=== PATIENT | male | born 1960 | race Hispanic/Latino ===

== ENCOUNTER 2018-10-24 11:12 | Observation (INO) | payer OTHER ==
[2018-10-24] MEDS ORDERED: ASPIRIN 81 MG CHEWABLE TABLET ONE (11:42)
[2018-10-24] MEDS ORDERED: METOPROLOL TAR 50 MG TAB ONE ×2 (11:42→11:43)
--- NOTE | 2018-10-24 11:48 | ER ---
Nurse's Notes [facility] Name: Nicholas Gallegos Jr Age: 58 yrs Sex: Male : 1960 Arrival Date: 10/24/2018 Time: 11:16 Bed 2 Private MD: Diagnosis: Chest pain, unspecified Presentation: 10/24 11:16 Presenting complaint: Patient states: "over the last few days I've been waking up with aa5 my whole face numb and it keeps lasting longer everyday". Pt also reports chest pain, palpitations, and intermittent SOB. 11:16 Transition of care: patient was not received from another setting of care. Onset of aa5 symptoms was September 2018. Risk Assessment: Do you want to hurt yourself or someone else? Patient reports no desire to harm self or others. Care prior to arrival: None. 11:16 Method Of Arrival: Wheelchair aa5 11:16 Acuity: ANA 2 aa5 Historical: - Allergies: 11:17 No Known Allergies; aa5 - PMHx: 11:17 Hyperlipidemia; Hypertension; aa5 - PSHx: 11:17 None; aa5 - Immunization history:: Flu vaccine is not up to date. - Social history:: Smoking status: Patient/guardian denies using tobacco. - Ebola Screening: : No symptoms or risks identified at this time. - Family history:: not pertinent. Screenin:19 Abuse screen: Denies threats or abuse. Denies injuries from another. Nutritional sv screening: No deficits noted. Tuberculosis screening: No symptoms or risk factors identified. Fall Risk None identified. Assessment: 11:25 General: Appears in no apparent distress. comfortable, Behavior is calm, cooperative, ss Denies fever, feeling ill, fatigue, chills. Pain: Complains of pain in chest Pain does not radiate. Pain currently is 5 out of 10 on a pain scale. Quality of pain is described as pressure, Pain began "a few days ago. It happens when my blood pressure goes up." Is episodic. Neuro: Level of Consciousness is awake, alert, obeys commands, Oriented to person, place, time, situation, Speech is normal. Neuro: Reports numbness to entire face that began "a few days ago" Mostly occurs in the morning. Denies numbness on arrival to ER. . Cardiovascular: Capillary refill < 3 seconds is brisk in bilateral fingers Patient's skin is warm and dry. Respiratory: Airway is patent Respiratory effort is even, unlabored, Respiratory pattern is regular, symmetrical. GI: No signs and/or symptoms were reported involving the gastrointestinal system. Patient currently denies diarrhea, nausea, vomiting. : No signs and/or symptoms were reported regarding the genitourinary system. EENT: Nares are clear Oral mucosa is moist. Throat is clear. Derm: Skin is intact, is healthy with good turgor, Skin is dry, Skin is pink, warm \\T\\ dry. normal. 12:38 Reassessment: Patient appears in no apparent distress at this time. Patient and/or ss family updated on plan of care and expected duration. Pain level reassessed. Patient is alert, oriented x 3, equal unlabored respirations, skin warm/dry/pink. Patient denies pain at this time. Neuro: Denies numbness. 14:29 Reassessment: No changes from previously documented assessment. Patient and/or family ss updated on plan of care and expected duration. Pain level reassessed. Patient is alert, oriented x 3, equal unlabored respirations, skin warm/dry/pink. Pt to MRI at this time Patient denies pain at this time. Vital Signs: 11:17 BP 172 / 71; Pulse 75; Resp 18 S; Pulse Ox 100% on R/A; Weight 90.72 kg (R); Height 5 aa5 ft. 6 in. (167.64 cm) (R); Pain 3/10; 11:20 Temp 98.2(O); aa5 12:23 BP 126 / 91; Pulse 62; Resp 16; Pulse Ox 99% ; sv 15:41 BP 118 / 82; Pulse 63; Resp 16; Temp 98.2(TE); Pulse Ox 100% on R/A; Pain 0/10; ss 16:07 BP 125 / 78; Pulse 63; Resp 16; Pulse Ox 100% ; sv 11:17 Body Mass Index 32.28 (90.72 kg, 167.64 cm) aa5 ED Course: 11:16 Patient arrived in ED. rg4 11:16 Arm band placed on Patient placed in an exam room, on a stretcher. aa5 11:17 Kelvin Tinoco MD is Attending Physician. [facility] 11:19 Patient has correct armband on for positive identification. Placed in gown. Bed in low sv position. engine monitor on. Pulse ox on. NIBP on. 11:20 Triage completed. aa5 11:20 Inserted saline lock: 20 gauge in right antecubital area, using aseptic technique. ss Blood collected. Patient maintains SpO2 saturation greater than 95% on room air. 11:22 ED physician to see patient. sv 11:25 EKG done, by floor tech. reviewed by Kelvin Tinoco MD. at1 11:27 Grazyna Kee, CINTIA is Primary Nurse. ss 11:43 X-ray(s) taken. sv 11:46 Rosio Márquez MD is Hospitalizing Provider. deisy 11:58 CT Head Brain wo Cont In Process Unspecified. EDMS 12:01 X-ray completed. Portable x-ray completed in exam room. Patient tolerated procedure jb2 well. 12:03 XRAY Chest (1 view) In Process Unspecified. EDMS 12:09 US Carotid Artery Bilateral In Process Unspecified. EDMS 14:23 Patient moved to MRI via wheelchair. ka 16:08 No provider procedures requiring assistance completed. Patient admitted, IV remains in sv place. intact. Administered Medications: 11:36 Drug: Aspirin Chewable Tablet 324 mg Route: PO; ss 12:50 Follow up: Response: No adverse reaction ss 11:37 Not Given (Duplicate Order): Lopressor (metoprolol TARTRATE) 50 mg PO once deisy 11:42 Drug: Lopressor 25 mg Route: PO; ss 12:51 Follow up: Response: No adverse reaction; Pain is decreased ss Outcome: 11:47 Decision to Hospitalize by Provider. deisy 16:08 Admitted to Tele accompanied by tech, via wheelchair, room 217, with chart, Report sv called to Ovi CHAMBERLAIN 16:08 Condition: stable 16:08 Instructed on the need for admit. 16:15 Patient left the ED. sv Signatures: Dispatcher [employer] EDMS Candie Ross, RN RN Kelvin Block MD MD cha Buechter, Jesse jb2 Alisha Rene, CINTIA RN aa5 Grazyna Kee, CINTIA RN ss Hodan Healy, comptometrist EKG Tat1 Joy Hansen Rubi rg4
--- NOTE | 2018-10-24 11:49 | EDPHYS ---
Physician Documentation [facility] Name: Nicholas Gallegos Jr Age: 58 yrs Sex: Male : 1960 Arrival Date: 10/24/2018 Time: 11:16 Bed 2 Private MD: WADE Physician Kelvin Tinoco HPI: 10/24 11:30 This 58 yrs old Male presents to ER via Wheelchair with complaints of Chest deisy Pain, Numbness Of Face, Numbness Of Arm. 11:30 The patient or guardian reports chest pain that is located primarily in the substernal deisy area, anterior chest wall, bilaterally. Onset: 2 day(s) ago. The pain radiates to face. Associated signs and symptoms: The patient has no apparent associated signs or symptoms. The chest pain is described as a pressure. Modifying factors: The symptoms are alleviated by nothing. the symptoms are aggravated by nothing. Severity of pain: At its worst the pain was mild in the emergency department the pain is unchanged. The patient has not experienced similar symptoms in the past. Historical: - Allergies: 11:17 No Known Allergies; aa5 - PMHx: 11:17 Hyperlipidemia; Hypertension; aa5 - PSHx: 11:17 None; aa5 - Immunization history:: Flu vaccine is not up to date. - Social history:: Smoking status: Patient/guardian denies using tobacco. - Ebola Screening: : No symptoms or risks identified at this time. - Family history:: not pertinent. ROS: 11:30 Constitutional: Negative for fever, chills, and weight loss, Eyes: Negative for injury, deisy pain, redness, and discharge, ENT: Negative for injury, pain, and discharge, Neck: Negative for injury, pain, and swelling, Respiratory: Negative for shortness of breath, cough, wheezing, and pleuritic chest pain, Abdomen/GI: Negative for abdominal pain, nausea, vomiting, diarrhea, and constipation, Back: Negative for injury and pain, : Negative for injury, bleeding, discharge, and swelling, MS/Extremity: Negative for injury and deformity, Skin: Negative for injury, rash, and discoloration, Psych: Negative for depression, anxiety, suicide ideation, homicidal ideation, and hallucinations, Allergy/Immunology: Negative for hives, rash, and allergies, Endocrine: Negative for neck swelling, polydipsia, polyuria, polyphagia, and marked weight changes, Hematologic/Lymphatic: Negative for swollen nodes, abnormal bleeding, and unusual bruising. 11:30 Cardiovascular: Positive for chest pain. 11:30 Neuro: Positive for numbness, of the face. Exam: 11:30 Constitutional: This is a well developed, well nourished patient who is awake, alert, deisy and in no acute distress. Head/Face: Normocephalic, atraumatic. Eyes: Pupils equal round and reactive to light, extra-ocular motions intact. Lids and lashes normal. Conjunctiva and sclera are non-icteric and not injected. Cornea within normal limits. Periorbital areas with no swelling, redness, or edema. ENT: Nares patent. No nasal discharge, no septal abnormalities noted. Tympanic membranes are normal and external auditory canals are clear. Oropharynx with no redness, swelling, or masses, exudates, or evidence of obstruction, uvula midline. Mucous membranes moist. Neck: Trachea midline, no thyromegaly or masses palpated, and no cervical lymphadenopathy. Supple, full range of motion without nuchal rigidity, or vertebral point tenderness. No Meningismus. Chest/axilla: Normal chest wall appearance and motion. Nontender with no deformity. No lesions are appreciated. Cardiovascular: Regular rate and rhythm with a normal S1 and S2. No gallops, murmurs, or rubs. Normal PMI, no JVD. No pulse deficits. Respiratory: Lungs have equal breath sounds bilaterally, clear to auscultation and percussion. No rales, rhonchi or wheezes noted. No increased work of breathing, no retractions or nasal flaring. Abdomen/GI: Soft, non-tender, with normal bowel sounds. No distension or tympany. No guarding or rebound. No evidence of tenderness throughout. Back: No spinal tenderness. No costovertebral tenderness. Full range of motion. Male : Normal genitalia with no discharge or lesions. Skin: Warm, dry with normal turgor. Normal color with no rashes, no lesions, and no evidence of cellulitis. MS/ Extremity: Pulses equal, no cyanosis. Neurovascular intact. Full, normal range of motion. Neuro: Awake and alert, GCS 15, oriented to person, place, time, and situation. Cranial nerves II-XII grossly intact. Motor strength 5/5 in all extremities. Sensory grossly intact. Cerebellar exam normal. Normal gait. Psych: Awake, alert, with orientation to person, place and time. Behavior, mood, and affect are within normal limits. Vital Signs: 11:17 BP 172 / 71; Pulse 75; Resp 18 S; Pulse Ox 100% on R/A; Weight 90.72 kg (R); Height 5 aa5 ft. 6 in. (167.64 cm) (R); Pain 3/10; 11:20 Temp 98.2(O); aa5 12:23 BP 126 / 91; Pulse 62; Resp 16; Pulse Ox 99% ; sv 15:41 BP 118 / 82; Pulse 63; Resp 16; Temp 98.2(TE); Pulse Ox 100% on R/A; Pain 0/10; ss 16:07 BP 125 / 78; Pulse 63; Resp 16; Pulse Ox 100% ; sv 11:17 Body Mass Index 32.28 (90.72 kg, 167.64 cm) aa5 MDM: 11:17 Patient medically screened. [facility] 12:42 Data reviewed: vital signs, nurses notes, lab test result(s), EKG, radiologic studies, [facility] CT scan, doppler, plain films. 10/24 11:18 Order name: Basic Metabolic Panel; Complete Time: 12:42 10/24 11:18 Order name: CBC with Diff; Complete Time: 12:42 10/24 11:18 Order name: LFT's; Complete Time: 12:42 10/24 11:18 Order name: Magnesium; Complete Time: 12:42 10/24 11:18 Order name: NT PRO-BNP; Complete Time: 12:42 10/24 11:18 Order name: PT-INR; Complete Time: 12:42 10/24 11:18 Order name: Troponin (emerg Dept Use Only); Complete Time: 12:42 10/24 11:21 Order name: Lipase [facility] 10/24 11:27 Order name: TSH [facility] 10/24 11:27 Order name: UDS [facility] 10/24 13:33 Order name: Troponin I [facility] 10/24 13:33 Order name: Troponin I [facility] 10/24 13:33 Order name: Troponin I [facility] 10/24 13:33 Order name: Troponin I [facility] 10/24 11:18 Order name: XRAY Chest (1 view); Complete Time: 12:42 sv 10/24 11:18 Order name: EKG; Complete Time: 11:19 sv 10/24 11:18 Order name: Cardiac monitoring; Complete Time: 11:28 sv 10/24 11:18 Order name: EKG - Nurse/Tech; Complete Time: 11:28 sv 10/24 11:18 Order name: IV Saline Lock; Complete Time: 11:28 sv 10/24 11:30 Order name: CT Head Brain wo Cont; Complete Time: 12:42 deisy 10/24 11:38 Order name: US Carotid Artery Bilateral; Complete Time: 12:42 deisy 10/24 13:23 Order name: Stroke Protocol [facility] 10/24 13:33 Order name: Echo with Doppler [facility] 10/24 15:34 Order name: Diet Heart Healthy; Complete Time: 15:35 sv 10/24 15:52 Order name: MRI [facility] 10/24 16:07 Order name: MRI [facility] 10/24 16:13 Order name: MRI [facility] 10/24 11:18 Order name: Labs collected and sent; Complete Time: 11:28 10/24 11:18 Order name: O2 Per Protocol; Complete Time: 11:28 sv 10/24 11:18 Order name: O2 Sat Monitoring; Complete Time: 11:28 sv Administered Medications: 11:36 Drug: Aspirin Chewable Tablet 324 mg Route: PO; ss 12:50 Follow up: Response: No adverse reaction ss 11:37 Not Given (Duplicate Order): Lopressor (metoprolol TARTRATE) 50 mg PO once deisy 11:42 Drug: Lopressor 25 mg Route: PO; ss 12:51 Follow up: Response: No adverse reaction; Pain is decreased ss Disposition: 10/24/18 11:47 Hospitalization ordered by Rosio Márquez for Observation. Preliminary diagnosis is Chest pain, unspecified. - Bed requested for Telemetry/MedSurg (observation). - Status is Observation. sv - Condition is Stable. - Problem is new. - Symptoms have improved. UTI on Admission? No Signatures: Dispatcher [employer] EDMS Luz Elena Horton Stephanie, RN RN sv Anderson, Corey, MD MD cha Calderon, Audri, RN RN aa5 Grazyna Kee RN RN ss Corrections: (The following items were deleted from the chart) 15:38 11:47 Hospitalization Ordered by Rosio Márquez MD for Observation. Preliminary bd diagnosis is Chest pain, unspecified. Bed requested for Telemetry/MedSurg (observation). Status is Observation. Condition is Stable. Problem is new. Symptoms have improved. UTI on Admission? No. deisy 16:15 15:38 10/24/2018 11:47 Hospitalization Ordered by Rosio Márquez MD for Observation. sv Preliminary diagnosis is Chest pain, unspecified. Bed requested for Telemetry/MedSurg (observation). Status is Observation. Condition is Stable. Problem is new. Symptoms have improved. UTI on Admission? No. bd
[2018-10-24] MEDS ORDERED: METOPROLOL TAR 25 MG TAB ONE (11:50)
[2018-10-24 11:51] LABS: ALT/SGPT 42 U/L (12-78); AST/SGOT 17 U/L (15-37); Absolute Lymphocytes (CBC) 3.3 K/uL (0.7-4.9); Absolute Monocytes 0.4 K/uL (0.1-1.3); Absolute Neutrophil 3.3 K/uL (1.8-8.0); Albumin 3.7 g/dL (3.4-5.0); Alkaline Phosphatase 110 U/L (45-117); BUN Blood Urea Nitrogen 11 mg/dL (7-18); Basophils % 0.7 % (0-1.3); Bicarbonate 30 mmol/L (21-32); Bilirubin Direct < 0.1 mg/dL (0-0.2); Bilirubin Total 0.2 mg/dL (0.2-1.0); Eosinophils % 3.4 % (0-4.4); Glucose Level 102 mg/dL (74-106); Hematocrit 40.8 % (39.6-49.0); Lymphocytes % 45.2 % (15.3-44.8); MPV 7.9 fL (7.6-11.3); Magnesium 2.3 mg/dL (1.8-2.4); NT PRO-BNP 19 pg/mL (<125); Potassium 3.7 mmol/L (3.5-5.1); Protein, Total 7.5 g/dL (6.4-8.2); RBC Red Blood Cell Count 4.69 M/uL (4.33-5.43); Sodium Level 143 mmol/L (136-145); Troponin (Emerg Dept Use Only) < 0.02 ng/mL (0.0-0.045)
[2018-10-24 11:52] LABS: Protime INR 0.98
--- NOTE | 2018-10-24 12:12 | RAD REPORT ---
EXAM DESCRIPTION: RAD - Chest Single View - 10/24/2018 12:07 pm CLINICAL HISTORY: Chest pain COMPARISON: None. TECHNIQUE: AP portable chest image was obtained 1201 hours . FINDINGS: Lungs are clear. Heart and vasculature are normal. No measurable pleural effusion and no p neumothorax. No acute bony abnormality seen. No acute aortic findings suspected. IMPRESSION: No acute cardiopulmonary process.
--- NOTE | 2018-10-24 12:15 | RAD REPORT ---
EXAM DESCRIPTION: CT - Head Brain Wo Cont - 10/24/2018 11:58 am CLINICAL HISTORY: Numbness COMPARISON: None TECHNIQUE: Computed axial tomography of the head was obtained. IV contrast was not requested. All CT scans are performed using dose optimization technique as appropriate and may include automated exposure control or mA/KV adjustment according to patient size. FINDINGS: An intracranial bleed is not seen . The ventricles are normal in caliber. No extra-axial fluid collection is noted. Mild to moderate ethmoid sinusitis. Fluid within mastoid is not seen IMPRESSION: No acute intracranial abnormality is seen. If patient's symptoms persist MRI of the bra in would be recommended.
--- NOTE | 2018-10-24 12:38 | RAD REPORT ---
EXAM DESCRIPTION: USCarotid Artery Bilateral10/24/2018 12:19 pm CLINICAL HISTORY: Numbness COMPARISON: None FINDINGS: The velocity of the right internal carotid artery equals 72 cm/sec. The right ICA/CCA rati o 1 The velocity of the left internal carotid artery equals 73 cm/sec. The left ICA/CCA ratio 0.9 Plaque is seen within the carotid arteries. The common carotid arteries are tortuous The vertebral arteries demonstrate antegrade flow IMPRESSION: Tortuous common carotid arteries. Otherwise unremarkable exam NASCET criteria used. Mild 0-49% stenosis Moderate 50-69% stenosis Severe 70-99% stenosis
--- NOTE | 2018-10-24 14:46 | EKG ---
Test Date: 2018-10-24 Test Time: 11:21:14 Paving Supervisor: TRIPP MEASUREMENT RESULTS: Intervals: Rate: 72 NV: 140 QRSD: 86 QT: 392 QTc: 429 [place]: P: 52 NV: 140 QRS: 47 T: 75 INTERPRETIVE STATEMENTS: Normal sinus rhythm Normal ECG No previous ECG available for comparison Electronically Signed On 10-24-18 14:44:17 [employer] by Newton Hutson
--- NOTE | 2018-10-24 15:51 | RAD REPORT ---
EXAM DESCRIPTION: MRI - MRA Head Wo Cont - 10/24/2018 3:33 pm CLINICAL HISTORY: CVA, left-sided facial numbness COMPARISON: None. TECHNIQUE: Axial and coronal 3D [id number] image acquisition was performed. 3D rotational images were generated with source and reconstruction images reviewed. Horizontal and vertical axis rotation al views generated using MIP protocol. FINDINGS: No aneurysm or vascular malformation identified. Distal vertebral arteries and proximal ba silar artery are quite tortuous but no stenosis or acute vascular finding. Anterior communicating art ector and right posterior communicating artery are present. No named branch occlusion identifiable. No significant atherosclerotic changes identifiable. There is 15 millimeter long narrowing at the proxim al portion of the M1 branch left middle cerebral artery. Source images show motion degradation presen t. The narrowing is suspected to be artifact rather than true atherosclerotic disease. Major venous sinuses are patent. IMPRESSION: No significant atherosclerotic changes identifiable. Narrowing at the origin of the left middle cerebral artery M1 branch is believed to be due to motion artifact. No branch occlusion, aneurysm or other significant vascular finding.
--- NOTE | 2018-10-24 16:06 | RAD REPORT ---
EXAM DESCRIPTION: MRI - Brain W/Wo Cont - 10/24/2018 3:34 pm COMPARISON: None. TECHNIQUE: Sagittal and axial T1-weighted images were obtained. Axial PD/heavily T2-weighted and T2- FLAIR images were obtained along with axial DWI/ADC mapping sequences. Coronal heavily T2 weighted s equence obtained. Axial and coronal post-contrast T1-weighted images were also obtained. A ml Multi betty contrast following utilized. FINDINGS: No intracranial hemorrhage, mass or acute infarction. There is no edema or shift of midli ne structures. No extra-axial fluid collections. Elder-matter/white matter junction is preserved. Sig nal voids are seen as a normal finding in the major intracranial vessels. No measurable atrophy or ch ronic ischemic change. Post-contrast images show normal enhancement. No dural thickening. Mastoid air cells are clear. Scattered mucosal thickening in the paranasal sinuses. IMPRESSION: No infarction or other acute intracranial finding. Scattered paranasal sinus mucosal thickening.
--- NOTE | 2018-10-24 16:13 | RAD REPORT ---
EXAM DESCRIPTION: MRI - MRA Neck W/Wo Cont - 10/24/2018 3:34 pm CLINICAL HISTORY: Left-sided facial numbness, CVA TECHNIQUE: MR angiography of the cervical vasculature performed. Coronal imaging plane acquisition u tilized. A MultiHance contrast volume was utilized. Coronal reformatted images were generated and re viewed. Vertical axis 3D rotational projections obtained using maximum intensity projection protocol. A 20 milliliter MultiHance contrast volume was utilized. FINDINGS: Aortic arch is 3 vessel. No origin stenosis. Right vertebral artery is dominant. No verteb ral artery origin stenosis. Left vertebral artery origin is tortuous. Bilateral common carotid arteries are unremarkable. Right internal carotid artery shows tortuosity in the midportion but is otherwise unremarkable. No left internal carotid significant finding. Proximal basilar and distal vertebral artery junction is quite tortuous but unremarkable. No dissection or st enosis. No aneurysm or vascular malformation. IMPRESSION: No dissection, stenosis or significant cervical carotid and vertebral artery finding.
--- NOTE | 2018-10-24 16:31 | P.HP ---
Certification for Inpatient Patient admitted to: Observation With expected LOS: <2 Midnights Patient will require the following post-hospital care: None Practitioner: I am a practitioner with admitting privileges, knowledge of patient current condition, hospital course, and medical plan of care. Services: Services provided to patient in accordance with Admission requirements found in Title 42 Section 412.3 of the Code of Federal Regulations Patient History Date of Service: 10/24/18 Primary Care Provider: None Reason for admission: Chest Pain and Numbness History of Present Illness: 58-year-old male with significant past medical history of hypertension and hyperlipidemia who presented to the ED complaining of having some patient's numbness and arm tingling. Patient stated that he usually has this episodes intermittently well are he has facial numbness that goes down to his jaw and then eventually down to his arms or he gets numbness and tingling. Patient states that he has never had follow up with any physician regarding this and thus he has not had any diagnosis for it. Patient decided to come to the ER today because he was having chest pain along with the facial numbness. No other complaints to offer at this time. Patient denies having any shortness of breath or any other neurological deficits. Patient also denies smoking, alcohol , drugs at this time. When I saw the patient in the ER patient and facial numbness and arm tingling were completely resolved. Chest pain had also resolved. Troponin x1 in the ER was negative EKG was within normal limits as well. Head CT was negative for any acute hemorrhagic stroke. Patient was admitted to the hospital for TIA rule out CVA and chest pain rule out ACS Allergies No Known Allergies Allergy (Unverified 10/24/18 13:17) Home Medications: Lisinopril 10 mg PO DAILY 10/24/18 Rosuvastatin [Crestor] 10 mg PO BEDTIME 10/24/18 Review of Systems 10-point ROS is otherwise unremarkable Physical Examination - Physical Exam General: Alert, In no apparent distress HEENT: Atraumatic, PERRLA, Mucous membr. moist/pink, EOMI, Sclerae nonicteric Neck: Supple, 2+ carotid pulse no bruit, No LAD, Without JVD or thyroid abnormality Respiratory: Clear to auscultation bilaterally, Normal air movement Cardiovascular: Regular rate/rhythm, Normal S1 S2 Gastrointestinal: Normal bowel sounds, No tenderness Musculoskeletal: No tenderness Integumentary: No rashes Neurological: Normal speech, Normal strength at 5/5 x4 extr, Normal tone, Cranial nerves 3-12 intact Lymphatics: No axilla or inguinal lymphadenopathy - Studies Laboratory Data (last 24 hrs) 10/24/18 11:20: Lipase 93 10/24/18 11:20: PT 11.6, INR 0.98 10/24/18 11:20: WBC 7.4, Hgb 13.7, Hct 40.8, Plt Count 452 H 10/24/18 11:20: Sodium 143, Potassium 3.7, BUN 11, Creatinine 0.89, Glucose 102 , Magnesium 2.3, Total Bilirubin 0.2, AST 17, ALT 42, Alkaline Phosphatase 110 Assessment and Plan - Problems (Diagnosis) (1) Chest pain Current Visit: Yes Status: Acute Plan: Atypical Chest Pain most likely related to anxiety -Troponin x 1 and EKG in the ED negative -Will get ECHO and Troponin x 2 -If negative f.u with Cards outpt for further workup Qualifiers: Chest pain type: chest pain on breathing Qualified Code(s): R07.1 - Chest pain on breathing; R07.81 - Pleurodynia (2) Facial numbness Current Visit: Yes Status: Acute Plan: Facial Numbness with arm tingling most likely Anxiety attack -Heat CT negative -Will get MRI, MRA and carotid Doppler -Will get lipid panel and start on asa and Lipitor Discharge Plan: Home Plan to discharge in: 48 Hours - Advance Directives Does patient have a Living Will: No Does patient have a Durable POA for Healthcare: No - Code Status/Comfort Care Code Status Assessed: Yes Critical Care: No
[2018-10-24 16:33] VITALS: BMI 33.5
[2018-10-24] MEDS: ENOXAPARIN 40 MG/0.4 ML SQ SCH (18:11)
[2018-10-24] MEDS ORDERED: POTASSIUM 25 MEQ EFFERV TAB PO ONE (21:00)
[2018-10-24] MEDS ORDERED: ATORVASTATIN 20 MG TAB PO SCH (21:00)
[2018-10-24 22:07] LABS: Urine Appearance CLEAR; Urine Bilirubin NEGATIVE (NEG); Urine Blood 2+ (NEG); Urine Color YELLOW; Urine Glucose NEGATIVE (NEG); Urine Microscopic Reflex ORDER UMIC; Urine Protein NEGATIVE (NEG); Urine Specific Gravity 1.015 (1.005-1.030); Urine Urobilinogen 0.2 mg/dL (0.2-1.0)
[2018-10-24 22:14] LABS: Urine Bacteria NONE SEEN /HPF (NONE SEEN)
[2018-10-24 22:15] LABS: Barbiturates NEGATIVE (NEGATIVE); Benzodiazepines NEGATIVE (NEGATIVE); Cocaine NEGATIVE (NEGATIVE); METHAMPHETAM NEGATIVE (NEGATIVE); Methadone NEGATIVE (NEGATIVE); Opiates NEGATIVE (NEGATIVE); Phencyclidine NEGATIVE (NEGATIVE); THC Cannibis NEGATIVE (NEGATIVE); Urine Culture Reflex Order NOT NEEDED
[2018-10-25 00:51] VITALS: O2SAT 97
[2018-10-25 06:20] LABS: ALT/SGPT 33 U/L (12-78); AST/SGOT 14 U/L (15-37); Albumin 3.2 g/dL (3.4-5.0); Alkaline Phosphatase 97 U/L (45-117); BUN Blood Urea Nitrogen 13 mg/dL (7-18); Bicarbonate 27 mmol/L (21-32); Bilirubin Total 0.2 mg/dL (0.2-1.0); Glucose Level 102 mg/dL (74-106); HDL Cholesterol 38 mg/dL (40-60); LDL Cholesterol, Calculated 67 (<130); Protein, Total 6.6 g/dL (6.4-8.2); Sodium Level 141 mmol/L (136-145)
[2018-10-25 06:27] LABS: Absolute Lymphocytes (CBC) 3.2 K/uL (0.7-4.9); Absolute Monocytes 0.5 K/uL (0.1-1.3); Absolute Neutrophil 4.3 K/uL (1.8-8.0); Basophils % 0.8 % (0-1.3); Eosinophils % 4.1 % (0-4.4); Hematocrit 36.8 % (39.6-49.0); Lymphocytes % 37.6 % (15.3-44.8); Monocytes % 6.5 % (3.3-12.3); RBC Red Blood Cell Count 4.21 M/uL (4.33-5.43)
[2018-10-25] MEDS ORDERED: ASPIRIN EC 81 MG TAB PO SCH (09:00)
[2018-10-25] MEDS ORDERED: LISINOPRIL 10 MG TAB PO SCH (09:00)
[2018-10-25] MEDS: ENOXAPARIN 40 MG/0.4 ML SQ SCH (10:16)
--- NOTE | 2018-10-25 11:32 | ECHO ---
HEIGHT: 5 ft 6 in WEIGHT: 207 lb 14.4 oz DATE OF STUDY: 10/25/[address]: Rosio Márquez MD 2-DIMENSIONAL: YES M.MODE: YES DOPPLER: YES COLOR FLOW: YES TDS: NO PORTABLE: NO DEFINITY: NO BUBBLE STUDY: NO DIAGNOSIS: CHEST PAIN CARDIAC HISTORY: CATHERIZATION: NO SURGERY: NO PROSTHETIC VALVE: NO PACEMAKER: NO MEASUREMENTS (cm) DIASTOLIC (NORMALS) SYSTOLIC (NORMALS) IVSd 0.9 (0.6-1.2) LA Diam 3.7 (1.9-4.0) LVEF 63% LVIDd 3.8 (3.5-5.7) LVIDs 2.5 (2.0-3.5) %FS 34% LVPWd 1.1 (0.6-1.2) Ao Diam 3.3 (2.0-3.7) 2 DIMENSIONAL ASSESSMENT: RIGHT ATRIUM: NORMAL LEFT ATRIUM: NORMAL RIGHT VENTRICLE: NORMAL LEFT VENTRICLE: NORMAL TRICUSPID VALVE: NORMAL MITRAL VALVE: NORMAL PULMONIC VALVE: NORMAL AORTIC VALVE: NORMAL PERICARDIAL EFFUSION: NONE AORTIC ROOT: NORMAL LEFT VENTRICULAR WALL MOTION: NORMAL DOPPLER/COLOR FLOW: PHYSIOLOGIC TRICUSPID REGURGITATION. NORMAL RIGHT VENTRICULAR SYSTOLIC PRESSURE. COMMENTS: NORMAL 2D ECHOCARDIOGRAM WITH DOPPLER. TECHNOLOGIST: Gabriel WAN
[2018-10-25 14:21] VITALS: BP 132/66; TEMP 97.1
--- NOTE | 2018-10-25 17:54 | P.DS ---
Admission Date: 10/24/18 Discharge Date: 10/25/18 Primary Care Provider: None Disposition: ROUTINE DISCHARGE Discharge Condition: GOOD Reason for Admission: Chest Pain and Numbness - Problems (1) Chest pain Status: Acute Qualifiers: Chest pain type: chest pain on breathing Qualified Code(s): R07.1 - Chest pain on breathing; R07.81 - Pleurodynia (2) Facial numbness Status: Acute Brief History of Present Illness: 58-year-old male with significant past medical history of hypertension and hyperlipidemia who presented to the ED complaining of having some patient's numbness and arm tingling. Patient stated that he usually has this episodes intermittently well are he has facial numbness that goes down to his jaw and then eventually down to his arms or he gets numbness and tingling. Patient states that he has never had follow up with any physician regarding this and thus he has not had any diagnosis for it. Patient decided to come to the ER today because he was having chest pain along with the facial numbness. No other complaints to offer at this time. Patient denies having any shortness of breath or any other neurological deficits. Patient also denies smoking, alcohol , drugs at this time. When I saw the patient in the ER patient and facial numbness and arm tingling were completely resolved. Chest pain had also resolved. Troponin x1 in the ER was negative EKG was within normal limits as well. Head CT was negative for any acute hemorrhagic stroke. Patient was admitted to the hospital for TIA rule out CVA and chest pain rule out ACS Hospital Course: Overall during the hospital stay patient remained stable The patient was initially admitted to the hospital for chest pain and facial numbness. Patient has been having recent upper respiratory infection and has been taking lot of NyQuil and DayQuil at home and after which she started noticing the facial numbness. Patient however was admitted to the hospital to rule out CVA an ACS. Patient had MRI carotid Doppler along with head CT done which were all within normal limits. Patient also had an echocardiogram done here in the hospital which was also within normal limits. Troponin x2 were also negative while here in the hospital. Patient did well overall and was able to ambulate and tolerate his diet well and thus was discharged home under stable condition. TIA and CVA along with ACS rule ruled out. Patient was asked to continue taking his blood pressure and his cholesterol medication. No aspirin was indicated as patient did not have TIA or CVA. Patient has no logical symptoms were most likely secondary to his use NyQuil and Benadryl. Vital Signs/Physical Exam: Temp Pulse Resp BP Pulse Ox 97.1 F 70 20 132/66 97 10/25/18 12:00 10/25/18 12:00 10/25/18 12:00 10/25/18 12:00 10/25/18 12:00 General: Alert, In no apparent distress HEENT: Atraumatic, PERRLA, EOMI Neck: Supple, JVD not distended Respiratory: Clear to auscultation bilaterally, Normal air movement Cardiovascular: Regular rate/rhythm, Normal S1 S2 Gastrointestinal: Normal bowel sounds, No tenderness Musculoskeletal: No tenderness Integumentary: No rashes Neurological: Normal speech, Normal tone, Normal affect Lymphatics: No axilla or inguinal lymphadenopathy Laboratory Data at Discharge: WBC 8.4 K/uL (4.3-10.9) 10/25/18 05:20 Hgb 12.8 g/dL (13.6-17.9) L 10/25/18 05:20 Hct 36.8 % (39.6-49.0) L 10/25/18 05:20 Plt Count 383 K/uL (152-406) 10/25/18 05:20 PT 11.6 SECONDS (9.5-12.5) 10/24/18 11:20 INR 0.98 10/24/18 11:20 Sodium 141 mmol/L (136-145) 10/25/18 05:20 Potassium 4.0 mmol/L (3.5-5.1) 10/25/18 05:20 BUN 13 mg/dL (7-18) 10/25/18 05:20 Creatinine 0.82 mg/dL (0.55-1.3) 10/25/18 05:20 Glucose 102 mg/dL (74-106) 10/25/18 05:20 Magnesium 2.3 mg/dL (1.8-2.4) 10/24/18 11:20 Total Bilirubin 0.2 mg/dL (0.2-1.0) 10/25/18 05:20 AST 14 U/L (15-37) L 10/25/18 05:20 ALT 33 U/L (12-78) 10/25/18 05:20 Alkaline Phosphatase 97 U/L (45-117) 10/25/18 05:20 Troponin I < 0.02 ng/mL (0.0-0.045) 10/25/18 05:20 Triglycerides 182 mg/dL (<150) H 10/25/18 05:20 Cholesterol 141 mg/dL (<200) 10/25/18 05:20 HDL Cholesterol 38 mg/dL (40-60) L 10/25/18 05:20 Cholesterol/HDL Ratio 3.71 10/25/18 05:20 Lipase 93 U/L (73-393) 10/24/18 11:20 Home Medications: Lisinopril 10 mg PO DAILY 10/24/18 Rosuvastatin [Crestor*] 10 mg PO DAILY 10/24/18 Diet: Regular Activity: Ad helena Followup: Newton Hutson MD [ACTIVE - CAN ADMIT] - 1 Week
== END 2018-10-25 14:52 | disposition home or self-care (01) ==
LOC: ER 11:12 → ERHOLD 13:32 → 2ND 16:09
PROVIDERS: ADMIT Family Medicine; ATTEND Family Medicine
DX: R07.9 Chest pain, unspecified (principal); R20.0 Anesthesia of skin; I10 Essential (primary) hypertension; E78.5 Hyperlipidemia, unspecified
CPT/HCPCS: 36415; 70450; 70544; 70549; 70553; 71045; 80048; 80053; 80061; 80076; 80307; 81003; 81015; 83690; 83735; 83880; 84443; 84484; 85025; 85610; 93005; 93306; 93880; 99285; A9577; G0378; J1650